=== PATIENT | female | born 1955 | race Two or more races ===

== ENCOUNTER 2022-02-04 09:14 | Emergency (ER) | payer OTHER ==
[~2022-02-04] VITALS: Ht 160 cm; Wt 97.5 kg
[~2022-02-04 09:14] MED LIST: LOSARTAN POTASS50 MG
[2022-02-04] MEDS ORDERED: ROSUVASTATIN CA20 MG PO (09:26)
[2022-02-04] MEDS ORDERED: FOSAMAX70 MG PO ×2 (09:27→09:28)
[2022-02-04] MEDS ORDERED: PERCOCET 5-3251 EACH PO (13:20)
[2022-02-04] MEDS ORDERED: NORFLEX100MG PO (13:20)
== END 2022-02-04 14:24 | disposition home or self-care (01) ==
LOC: ER 09:14
DX: M54.50 Low back pain, unspecified (principal); I10 Essential (primary) hypertension; Z88.6 Allergy status to analgesic agent

== ENCOUNTER → 2022-05-12 | Outpatient (CLI) | payer OTHER ==
[~2022-05-12] MED LIST changes: +FOSAMAX70 MG PO; +NORFLEX100MG PO; +PERCOCET 5-3251 EACH PO; +ROSUVASTATIN CA20 MG PO
== END | disposition home or self-care (01) ==
LOC: NUCLEAR 06:45
PROVIDERS: ATTEND Internal Medicine Cardiovascular Disease
DX: R55 Syncope and collapse (principal)

== ENCOUNTER 2022-06-06 07:07 | Outpatient (CLI) | payer OTHER | END 2022-06-06 07:08 | disposition home or self-care (01) | LOC: NUCLEAR 07:07 | PROVIDERS: ATTEND Internal Medicine Cardiovascular Disease | DX: I11.9 Hypertensive heart disease without heart failure (principal) | CPT/HCPCS: 78452; 93018; A9500; J0153 ==

== ENCOUNTER 2023-11-05 10:42 | Outpatient (CLI) | payer OTHER | END 2023-11-05 10:43 | disposition home or self-care (01) | LOC: NUCLEAR 10:42 | PROVIDERS: ATTEND Internal Medicine | DX: I73.9 Peripheral vascular disease, unspecified (principal); I87.2 Venous insufficiency (chronic) (peripheral) ==

== ENCOUNTER 2023-11-06 08:53 | Outpatient (CLI) | payer OTHER | END 2023-11-06 08:54 | disposition home or self-care (01) | LOC: NUCLEAR 08:53 | PROVIDERS: ATTEND Internal Medicine | DX: I73.9 Peripheral vascular disease, unspecified (principal); I87.2 Venous insufficiency (chronic) (peripheral) ==